=== PATIENT | female | born 1945 | race African-American/Black ===

== ENCOUNTER 2017-07-13 17:30 | Emergency (ER) | payer MEDICARE ==
[~2017-07-13] VITALS: Ht 162.6 cm; Wt 90.0 kg
[2017-07-13] MEDS ORDERED: METF500T4 PO (17:33)
[2017-07-13 22:03] VITALS: BP 111/77
== END 2017-07-13 22:04 | disposition home or self-care (01) ==
LOC: ER 17:39
DX: M79.1 Myalgia (principal); R51 Headache; M54.2 Cervicalgia; E11.9 Type 2 diabetes mellitus without complications; V89.2XXA Person injured in unspecified motor-vehicle accident, traffic, initial encounter; Y93.89 Activity, other specified; Y99.8 Other external cause status; Y92.410 Unspecified street and highway as the place of occurrence of the external cause
CPT/HCPCS: 70450; 71045; 72125; 73562; 93005; 99284